=== PATIENT | female | born 1980 | race Caucasian/White ===

== ENCOUNTER 2016-11-21 22:21 | Emergency (ER) | payer OTHER ==
[~2016-11-21] VITALS: Ht 162.6 cm; Wt 56.7 kg
--- NOTE | 2016-11-21 22:21 | NUR ---
PATIENT BIB PD TO [facility].
[2016-11-21 22:25] VITALS: BP 117/78
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
--- NOTE | 2016-11-21 22:35 | NUR ---
Patient being evaluated by physician at bedside.
[2016-11-21 22:51] VITALS: BP 117/78
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
== END 2016-11-21 22:52 ==
LOC: MED 22:21
DX: Z02.89 Encounter for other administrative examinations (principal); S80.211A Abrasion, right knee, initial encounter; K21.9 Gastro-esophageal reflux disease without esophagitis; V89.2XXA Person injured in unspecified motor-vehicle accident, traffic, initial encounter; Y93.89 Activity, other specified; Y92.89 Other specified places as the place of occurrence of the external cause; Y99.8 Other external cause status